=== PATIENT | male | born 1960 | race Two or more races ===

== ENCOUNTER 2020-10-13 16:32 | Emergency (ER) | payer OTHER ==
[2020-10-13 16:47] VITALS: BP 182/98; PULSE 79; RESP 16; TEMP 98.2
[2020-10-13] MEDS ORDERED: KETOROLAC 15 MG/ML 1 ML VIAL IM STA (17:05)
--- NOTE | 2020-10-13 17:38 | XR ---
EXAMINATION TYPE: XR tibia fibula RT, XR ankle complete RT DATE OF EXAM: 10/13/2020 CLINICAL HISTORY: Slip and fall injury with pain. TECHNIQUE: Two views of the right leg are obtained. 3 views of right ankle. COMPARISON: None. FINDINGS: There is acute minimally displaced spiral type fracture through proximal fibular diaphysis . Right knee joint is maintained. Mild to moderate soft tissue swelling over medial and lateral malle olus. No additional fracture at this level. Ankle mortise symmetry is maintained. Small inferior calc aneal spur incidentally noted. IMPRESSION: There is acute minimally displaced spiral type fracture through proximal fibular diaphy sis.
--- NOTE | 2020-10-13 18:05 | ED ---
Lower Extremity Injury HPI - General Chief Complaint: Extremity Injury, Lower Stated Complaint: Fall, leg pain Time Seen by Provider: 10/13/20 16:58 Source: patient, RN notes reviewed Mode of arrival: ambulatory Limitations: no limitations - History of Present Illness Initial Comments: Patient is a 59-year-old male that presents to the emergency room complaining of right lower external pain. He notes that [place] on some wet mud in his leg went under him. He notes that he fell under the car next to him to. He notes that his ankle was pre-swollen and tender and that he has significant pain over the lateral aspect of his lower leg just distal his knee. Patient notes the pain is approximately a 6 out of 10. He denied any weakness numbness tingling in his right lower extremity. He denied any chest pain first breath headache nausea vomiting diarrhea constipation fever fatigue chills. - Related Data Allergies Allergy/AdvReac Type Severity Reaction Status Date / Time No Known Allergies Allergy Verified 10/13/20 16:44 Review of Systems ROS Statement: Those systems with pertinent positive or pertinent negative responses have been documented in the HPI. ROS Other: All systems not noted in ROS Statement are negative. Past Medical History Past Medical History: No Reported History History of Any Multi-Drug Resistant Organisms: None Reported Past Surgical History: No Surgical Hx Reported Past Psychological History: No Psychological Hx Reported Smoking Status: Never smoker Past Alcohol Use History: None Reported Past Drug Use History: None Reported General Exam Limitations: no limitations General appearance: alert, in no apparent distress Head exam: Present: atraumatic, normocephalic, normal inspection Eye exam: Present: normal appearance, PERRL, EOMI. Absent: scleral icterus, conjunctival injection, periorbital swelling Neck exam: Present: normal inspection Respiratory exam: Present: normal lung sounds bilaterally. Absent: respiratory distress, wheezes, rales, rhonchi, stridor Cardiovascular Exam: Present: regular rate, normal rhythm, normal heart sounds. Absent: systolic murmur, diastolic murmur, rubs, gallop, clicks Right Lower Leg exam: Present: full ROM, tenderness (Lateral aspect just inferior the knee.), swelling (Minimal), abrasion (Lateral aspect just inferior the any) Ankle exam: Present: tenderness (Over the lateral and medial malleoli), swelling. Absent: abrasion, laceration, ecchymosis Neurological exam: Present: alert, oriented X3 Psychiatric exam: Present: normal affect, normal mood Skin exam: Present: warm, dry, intact, normal color. Absent: rash Course Vital Signs 10/13/20 16:45 Temperature 98.2 F Pulse Rate 79 Respiratory 16 Rate Blood Pressure 182/98 O2 Sat by Pulse 95 Oximetry Medical Decision Making - Medical Decision Making 59-year-old male complaining of right lower leg pain after slipping and falling [place] parking [place]. X-ray of the right ankle and tib-fib, 15 mg of Toradol ordered. X-ray shows a minimally displaced spiral fracture of the proximal fibular diaphysis. Knee immobilizer and crutches ordered. Case discussed with Dr. Mccallum, patient can discharge home. - Radiology Data Radiology results: report reviewed, image reviewed X-ray of the right ankle and tib-fib: There is acute minimally displaced spiral fracture to the proximal fibular diaphysis. Disposition Clinical Impression: Right fibular fracture Disposition: HOME SELF-CARE Condition: Stable Instructions (If sedation given, give patient instructions): Leg Fracture (ED) Additional Instructions: Please return to the Emergency Department if symptoms worsen or any other concerns. Follow-up with primary care as needed. Follow-up with orthopedist in the next several days. Can walk as tolerated. Can take knee immobilizer off to drive. Take Tylenol and Motrin as needed for pain control. Is patient prescribed a controlled substance at d/c from ED?: No Referrals: Nonstaff,Physician [Primary Care Provider] - 1-2 days Time of Disposition: 18:06
== END 2020-10-13 18:53 | disposition home or self-care (01) ==
LOC: EC 16:32
DX: S82.831A Other fracture of upper and lower end of right fibula, initial encounter for closed fracture (principal); W01.0XXA Fall on same level from slipping, tripping and stumbling without subsequent striking against object, initial encounter; Y92.481 Parking lot as the place of occurrence of the external cause
CPT/HCPCS: 73590; 73610; 99284; 96372; L1830 ×2; J1885